=== PATIENT | female | born 1960 | race Caucasian/White ===

== ENCOUNTER 2018-11-02 13:05 | Emergency (ER) | payer OTHER ==
[~2018-11-02] VITALS: Ht 162.6 cm; Wt 97.5 kg
[~2018-11-02 13:05] MED LIST: ALLO300T PO; AMLO2.5T3 PO; ASPI-482 PO; CARV6.2511 PO; CETI10TA22 PO; CHOL400C2 PO; ESTR1TAB15 PO; GLIM1TAB2 PO; MAGN250T10 PO; METF10007 PO; MYCO500T PO; OMEG500C PO; SERT50TA PO; TACR1CAP4 PO
--- NOTE | 2018-11-02 14:09 | PHYS DOC ---
Adult General Chief Complaint Chief Complaint: HYPERTENSION HPI HPI Patient is 57 yo female w/ PMH diabetes (on insulin), kidney transplant pt (hx PCKD and RCC) and HTN w/ complaint of hypertension. She reports she had a mild headache last night which she describes as pressure in the front of her head. She also noticed a "fluttering" in her chest when laying down but thinks that is from the thrill of her dialysis fistula. She took her blood pressure and noticed it was elevated (SBP 180). She took the remainder of her evening medications and went to bed. Pt took her bp again this morning and was 212/95, when she decided to present to ED. Currently she is asymptomatic. She reports heart disease runs in the family but does not currently have that diagnosis. She is currently on tacrolimus and cellcept for her kidney transplant and lisinopril and coreg for HTN. She denies smoking, etoh use, or illicit drug use. She reports that one of her children is sick and that has caused recent increased stress. Her PCP is Dr. Garcia here at [place] however her mannequin mold maker is at . Review of Systems Review of Systems Constitutional: Denies fever or chills [] Eyes: Denies change in visual acuity, redness, or eye pain [] HENT: Denies nasal congestion or sore throat [] Respiratory: Denies cough or shortness of breath [] Cardiovascular: No additional information not addressed in HPI [] GI: Denies abdominal pain, nausea, vomiting, bloody stools or diarrhea [] : Denies dysuria or hematuria [] Musculoskeletal: Denies back pain or joint pain [] Integument: Denies rash or skin lesions [] Neurologic: Denies headache, focal weakness or sensory changes [] Endocrine: Denies polyuria or polydipsia [] All other systems were reviewed and found to be within normal limits, except as documented in this note. Current Medications Current Medications Current Medications Medications (Trade) Dose Ordered Sig/Xi Start Time Stop Time Status Last Admin Dose Admin Clonidine HCl (Catapres) 0.1 mg 1X ONCE 11/02/18 15:45 11/02/18 15:46 Allergies Allergies Allergies Coded Allergies Type Severity Reaction Last Updated Verified codeine Allergy Intermediate 06/13/16 Yes metronidazole Allergy Intermediate Rash 06/13/16 Yes Physical Exam Physical Exam Constitutional: Well developed, well nourished, no acute distress, non-toxic appearance. [] HENT: Normocephalic, atraumatic, oropharynx moist, no oral exudates, nose normal. [] Eyes: PERRLA, EOMI, conjunctiva normal, no discharge. [] Neck: Normal range of motion, no tenderness, supple, no stridor. [] Cardiovascular:Heart rate regular rhythm, no murmur [] Lungs & Thorax: Bilateral breath sounds clear to auscultation [] Abdomen: Bowel sounds normal, soft, no tenderness Skin: Warm, dry, no erythema, no rash. [] Back: No tenderness Extremities: No tenderness, no cyanosis, no clubbing, ROM intact, no edema. Scar present LUE over fistula. Fistula has palpable thrill. Neurologic: Alert and oriented X 3, normal motor function, normal sensory function, no focal deficits noted. [] Psychologic: Affect normal, judgement normal, mood normal. [] Current Patient Data Vital Signs Vital Signs Date Time Temp Pulse Resp B/P (MAP) Pulse Ox O2 Delivery O2 Flow Rate FiO2 11/02/18 13:27 98.8 104 20 181/72 (108) 98 Room Air 98.8 Lab Values Laboratory Tests Test 11/02/18 14:00 White Blood Count 5.5 x10^3/uL (4.0-11.0) Red Blood Count 4.49 x10^6/uL (3.50-5.40) Hemoglobin 11.7 g/dL (12.0-15.5) L Hematocrit 35.4 % (36.0-47.0) L Mean Corpuscular Volume 79 fL (79-100) Mean Corpuscular Hemoglobin 26 pg (25-35) Mean Corpuscular Hemoglobin Concent 33 g/dL (31-37) Red Cell Distribution Width 14.7 % (11.5-14.5) H Platelet Count 168 x10^3/uL (140-400) Neutrophils (%) (Auto) 65 % (31-73) Lymphocytes (%) (Auto) 27 % (24-48) Monocytes (%) (Auto) 5 % (0-9) Eosinophils (%) (Auto) 2 % (0-3) Basophils (%) (Auto) 1 % (0-3) Neutrophils # (Auto) 3.6 x10^3uL (1.8-7.7) Lymphocytes # (Auto) 1.5 x10^3/uL (1.0-4.8) Monocytes # (Auto) 0.3 x10^3/uL (0.0-1.1) Eosinophils # (Auto) 0.1 x10^3/uL (0.0-0.7) Basophils # (Auto) 0.0 x10^3/uL (0.0-0.2) Sodium Level 138 mmol/L (136-145) Potassium Level 4.4 mmol/L (3.5-5.1) Chloride Level 103 mmol/L (98-107) Carbon Dioxide Level 25 mmol/L (21-32) Anion Gap 10 (6-14) Blood Urea Nitrogen 25 mg/dL (7-20) H Creatinine 1.3 mg/dL (0.6-1.0) H Estimated GFR (Cockcroft-Gault) 42.4 BUN/Creatinine Ratio 19 (6-20) Glucose Level 168 mg/dL (70-99) H Calcium Level 9.9 mg/dL (8.5-10.1) Total Bilirubin 0.4 mg/dL (0.2-1.0) Aspartate Amino Transferase (AST) 14 U/L (15-37) L Alanine Aminotransferase (ALT) 19 U/L (14-59) Alkaline Phosphatase 44 U/L (46-116) L Creatine Kinase 43 U/L (26-192) Creatine Kinase MB (Mass) 0.7 ng/mL (0.0-3.6) Creatine Kinase MB Relative Index 1.6 % (0-4) Troponin I Quantitative < 0.017 ng/mL (0.000-0.055) Total Protein 7.1 g/dL (6.4-8.2) Albumin 3.1 g/dL (3.4-5.0) L Albumin/Globulin Ratio 0.8 (1.0-1.7) L Laboratory Tests 11/02/18 14:00 Laboratory Tests 11/02/18 14:00 EKG EKG @ 1319; HR 60 BPM; sinus rhythm. Radiology/Procedures Radiology/Procedures [PROCEDURE: CT HEAD WO CONTRAST PQRS Compliance Statement: One or more of the following individualized dose reduction techniques were utilized for this examination: 1. Automated exposure control 2. Adjustment of the mA and/or kV according to patient size 3. Use of iterative reconstruction technique CT HEAD WITHOUT CONTRAST History: HTN with headache Comparison: None. Procedure: Axial images are obtained of the head from the skull base through the vertex without IV contrast. Findings: The ventricles and sulci are normal for the patient's age. No mass-effect, midline shift, hemorrhage, extra-axial fluid collection, or obvious acute infarction is identified. Basilar cisterns are patent. Bone windows demonstrate no acute calvarial abnormality. There is a anterior right vertex 1.5 cm coarse extra-axial calcification. A calcified meningioma or a dural calcification are considerations. The visualized paranasal sinuses are clear. Mastoid air cells are well aerated. IMPRESSION: No acute intracranial abnormality. Electronically signed by: August Sexton MD (11/02/2018 2:54 PM) [id number] ED prelim read CXR: unremarkable for acute cardiopulmonary process. ] Course & Med Decision Making Course & Med Decision Making Patient is 57 yo female w/ DM, kidney transplant, and HTN who presents from PCP' s office ([place]) with complaint of HTN. Patient reports she noticed a frontal headache last took and her BP was elevated. She was at her PCP this morning when her BP was again elevated and patient was sent to ED. On physical exam patient's vitals are WNL with the exception of BP 181/72. She is resting comfortably and neurologically intact. Remainder of physical exam unremarkable. Labs reveal Cr to be 1.3 which patient says is her baseline. Remainder of labs, including troponin and CKMB, are unremarkable. EKG reveals sinus rhythm with HR at 60bpm. CT head reveals no acute intracranial abnormality. Patient's PCP requested CXR to be ordered. Prelim read of 2 view CXR unremarkable for acute abnormality. Discussed with patient that although her BP is definitely elevated, in the ED we typically become concerned about acute end organ damage around 220/120. Discussed with patient that we will give her clonidine prescription for her to prn when her BP is 185/105. Also discussed that patient needs to journal BP and speak with her PCP and mannequin mold maker (who both manage her BP medication) about her HTN and meds. Discussed with patient when to use medication and that she will be discharged home today. Patient and daughter verbalized understanding and agreement with plan. Nadira Disclaimer Dragon Disclaimer This electronic medical record was generated, in whole or in part, using a voice recognition dictation system. Departure Departure Impression: Primary Impression: Hypertension Disposition: 01 HOME, SELF-CARE Condition: STABLE Referrals: JESSICA GARCIA MD (PCP) Patient Instructions: Hypertension, [id number] Scripts Clonidine Hcl (CLONIDINE HCL) 0.1 Mg Tablet 0.1 MG PO BID PRN for ELEVATED BP, SEE COMMENTS MDD 2, #14 TAB Take for blood pressure systolic greater than 185 and/or diastolic greater than 105. Prov: FLIP MÁRQUEZ DO 11/02/18 Problem Qualifiers Primary Impression: Hypertension Hypertension type: unspecified Qualified Codes: I10 - Essential (primary) hypertension FLIP MÁRQUEZ DO Nov 02, 2018 14:09
[2018-11-02 14:17] LABS: BASO % 1 % (0-3); EOS # 0.1 x10^3/uL (0.0-0.7); EOS % 2 % (0-3); HEMATOCRIT 35.4 % (36.0-47.0); HEMOGLOBIN 11.7 g/dL (12.0-15.5); LYMPH # 1.5 x10^3/uL (1.0-4.8); LYMPH % 27 % (24-48); MEAN CORPUSCULAR HEMOGLOBIN 26 pg (25-35); MEAN CORPUSCULAR HGB CONC 33 g/dL (31-37); MEAN CORPUSCULAR VOLUME 79 fL (79-100); MONO # 0.3 x10^3/uL (0.0-1.1); MONO % 5 % (0-9); NEUT # 3.6 x10^3uL (1.8-7.7); NEUT % 65 % (31-73); PLATELET COUNT 168 x10^3/uL (140-400); RED BLOOD COUNT 4.49 x10^6/uL (3.50-5.40); RED CELL DISTRIBUTION WIDTH 14.7 % (11.5-14.5); WHITE BLOOD COUNT 5.5 x10^3/uL (4.0-11.0)
[2018-11-02 14:33] LABS: CALCIUM 9.9 mg/dL (8.5-10.1); CREATININE 1.3 mg/dL (0.6-1.0); GFR 42.4; POTASSIUM 4.4 mmol/L (3.5-5.1)
[2018-11-02 14:39] LABS: ALBUMIN 3.1 g/dL (3.4-5.0); ALBUMIN/GLOBULIN RATIO 0.8 (1.0-1.7); TOTAL BILIRUBIN 0.4 mg/dL (0.2-1.0); TOTAL PROTEIN 7.1 g/dL (6.4-8.2)
--- NOTE | 2018-11-02 14:58 | RAD ---
PQRS Compliance Statement: One or more of the following individualized dose reduction techniques were utilized for this examination: 1. Automated exposure control 2. Adjustment of the mA and/or kV according to patient size 3. Use of iterative reconstruction technique CT HEAD WITHOUT CONTRAST History: HTN with headache Comparison: None. Procedure: Axial images are obtained of the head from the skull base through the vertex without IV contrast. Findings: The ventricles and sulci are normal for the patient's age. No mass-effect, midline shift, hemorrhage, extra-axial fluid collection, or obvious acute infarction is identified. Basilar cisterns are patent. Bone windows demonstrate no acute calvarial abnormality. There is a anterior right vertex 1.5 cm coarse extra-axial calcification. A calcified meningioma or a dural calcification are considerations. The visualized paranasal sinuses are clear. Mastoid air cells are well aerated. IMPRESSION: No acute intracranial abnormality. Electronically signed by: August Setxon MD (11/02/2018 2:54 PM) [id number]
--- NOTE | 2018-11-02 15:09 | EKG ---
[facility] [address] [place] [address] Test Date: 2018-11-02 Test Time: 13:19:18 Pat Name: NADIYA GARCIA Department: Room: Gender: F Knitting Machine Operator: : [id number] Requested By: FLIP MÁRQUEZ Order Number: [id number] Reading MD: Measurements Intervals [place] Rate: P: WI: QRS: QRSD: T: QT: QTc: Interpretive Statements
[2018-11-02 15:15] VITALS: BP 173/74
[2018-11-02] MEDS ORDERED: CLON0.1T PO (15:15)
--- NOTE | 2018-11-02 15:28 | RAD ---
CHEST PA LATERAL History: cough/ high blood pressure Comparison: None. Findings: The cardiomediastinal silhouette is normal. Pulmonary vasculature is normal. The lungs are clear. No pleural effusion or pneumothorax is seen. There is no acute bone abnormality. IMPRESSION: No acute cardiopulmonary process. Electronically signed by: August Sexton MD (11/02/2018 3:23 PM) [id number]
[2018-11-02] MEDS ORDERED: cloNIDine HCL 0.1 MG TABLET ONE (15:33)
[2018-11-02] MEDS ORDERED: cloNIDine HCL 0.1 MG TABLET PO ONE (15:45)
== END 2018-11-02 15:28 | disposition home or self-care (01) ==
LOC: ER 13:05
DX: I10 Essential (primary) hypertension (principal); R51 Headache; R00.2 Palpitations; E11.9 Type 2 diabetes mellitus without complications; Z85.528 Personal history of other malignant neoplasm of kidney; Z94.0 Kidney transplant status; Z79.4 Long term (current) use of insulin; Z88.5 Allergy status to narcotic agent; Z88.8 Allergy status to other drugs, medicaments and biological substances
CPT/HCPCS: 36415; 70450; 71046; 80053; 82553; 84484; 85025; 93005; 99284

== ENCOUNTER → 2019-04-20 | Outpatient (CLI) | payer OTHER ==
[~2019-04-20] MED LIST changes: -AMLO2.5T3 PO; +AMLO2.5T5 PO; +CLON0.1T PO
--- NOTE | 2019-04-20 14:46 | KCIC ---
Indication: Osteoporosis. Postmenopausal] TECHNIQUE: DEXA scan COMPARISON: None FINDINGS: The bone mineral density in the left femoral neck measures 1.280 g/sq cm with T score of 2.8. The bone mineral density in the lumbar spine from L1-L4 measures 1.504 g/sq cm with T score of 4.2. IMPRESSION: Normal bone mineral density at all measured sites. Electronically signed by: Ez Servin DO (04/20/2019 2:43 PM) [facility]
== END | disposition home or self-care (01) ==
LOC: KCIC DEXA 12:00
PROVIDERS: ATTEND Nurse Practitioner Family
DX: Z13.820 Encounter for screening for osteoporosis (principal); N95.9 Unspecified menopausal and perimenopausal disorder; E11.9 Type 2 diabetes mellitus without complications
CPT/HCPCS: 77080

== ENCOUNTER → 2019-05-12 | Day surgery (SDC) | payer OTHER ==
[~2019-05-12] MED LIST changes: +INSU100C SQ; +INSU100V13 SQ; +IV RINGERS,LACTATED 1000ML 1,000 ML IV SCH; +LISI10TA2 PO; +NIFE30TA38 PO
[2019-05-12 14:44] VITALS: BP 119/67
== END ==
LOC: ENDOS 07:00
PROVIDERS: ATTEND Internal Medicine Gastroenterology
DX: Z12.11 Encounter for screening for malignant neoplasm of colon (principal); K57.30 Diverticulosis of large intestine without perforation or abscess without bleeding; K64.0 First degree hemorrhoids; F41.9 Anxiety disorder, unspecified; E11.9 Type 2 diabetes mellitus without complications; K22.2 Esophageal obstruction; K21.9 Gastro-esophageal reflux disease without esophagitis; K44.9 Diaphragmatic hernia without obstruction or gangrene; I10 Essential (primary) hypertension; E78.00 Pure hypercholesterolemia, unspecified; Z85.828 Personal history of other malignant neoplasm of skin; Z88.1 Allergy status to other antibiotic agents; Z88.5 Allergy status to narcotic agent; Z88.8 Allergy status to other drugs, medicaments and biological substances; Z79.82 Long term (current) use of aspirin; Z79.84 Long term (current) use of oral hypoglycemic drugs; Z90.710 Acquired absence of both cervix and uterus; Z86.010 Personal history of colon polyps
CPT/HCPCS: 45378; 82962